=== PATIENT | male | born 1995 | race African-American/Black ===

== ENCOUNTER 2023-07-08 11:35 | Emergency (ER) | payer MEDICAID ==
[~2023-07-08] VITALS: Ht 180.3 cm; Wt 77.3 kg
[2023-07-08 12:44] VITALS: TEMP 97.9
[2023-07-08] MEDS ORDERED: SERT-158 PO (12:47)
[2023-07-08] MEDS ORDERED: BUPR-344 PO (12:47)
[2023-07-08] MEDS ORDERED: IBUP-1492 PO (14:17)
[2023-07-08] MEDS ORDERED: BACL10TA PO (14:17)
[2023-07-08] MEDS ORDERED: LIDO700A15 TP (14:18)
[2023-07-08] MEDS: LIDOCAINE 5% TRANSDERMAL PATCH TD ONE (14:29)
[2023-07-08] MEDS: KETOROLAC TROMETHAMINE 30 MG/ML VIAL IM ONE (14:29)
[2023-07-08 15:07] VITALS: BP 132/72; PULSE 72; RESP 17
== END 2023-07-08 15:08 | disposition home or self-care (01) ==
LOC: EMS 11:35
DX: M54.6 Pain in thoracic spine (principal); M54.2 Cervicalgia; F41.9 Anxiety disorder, unspecified; F32.A Depression, unspecified
CPT/HCPCS: 99283; 96372; J1885

== ENCOUNTER 2023-09-04 17:32 | Emergency (ER) | payer MEDICAID ==
[~2023-09-04] VITALS: Ht 180.3 cm; Wt 76.4 kg
[~2023-09-04 17:32] MED LIST: BACL10TA PO; BUPR-344 PO; IBUP-1492 PO; LIDO700A15 TP; SERT-158 PO
[2023-09-04 17:44] VITALS: TEMP 97.5
[2023-09-04] MEDS ORDERED: LUMA42CA PO (20:57)
[2023-09-04] MEDS ORDERED: SERT-162 PO (20:57)
[2023-09-04] MEDS ORDERED: PRAZ1 PO (20:57)
[2023-09-04] MEDS ORDERED: BUPR-344 PO (20:57)
[2023-09-04] MEDS: PRAZOSIN HCL 1 MG CAPSULE PO ONE (21:13)
[2023-09-04] MEDS: SERTRALINE HCL 100 MG TABLET PO ONE (21:13)
[2023-09-04 21:16] VITALS: BP 105/74; PULSE 79; RESP 20
== END 2023-09-04 21:20 | disposition home or self-care (01) ==
LOC: EMS 17:36
DX: F20.9 Schizophrenia, unspecified (principal); F41.9 Anxiety disorder, unspecified; F32.A Depression, unspecified; Z76.0 Encounter for issue of repeat prescription
CPT/HCPCS: 99283

== ENCOUNTER 2024-03-28 14:59 | Emergency (ER) | payer MEDICAID ==
[~2024-03-28] VITALS: Ht 180.3 cm; Wt 77.7 kg
[~2024-03-28 14:59] MED LIST changes: +LUMA42CA PO; +PRAZ1 PO; +SERT-162 PO
[2024-03-28 15:04] VITALS: TEMP 98.6
[2024-03-28 15:45] VITALS: BP 132/78; PULSE 80; RESP 20; O2SAT 100
[2024-03-28] MEDS ORDERED: BUPR-49 PO ×2 (16:29)
[2024-03-28] MEDS ORDERED: RISP1TAB48 PO ×2 (16:29)
== END 2024-03-28 16:55 | disposition home or self-care (01) ==
LOC: EMS 14:59
DX: F32.A Depression, unspecified (principal); F41.9 Anxiety disorder, unspecified; F43.10 Post-traumatic stress disorder, unspecified; I10 Essential (primary) hypertension; Z76.0 Encounter for issue of repeat prescription; Z79.899 Other long term (current) drug therapy
CPT/HCPCS: 99281; Z7502

== ENCOUNTER 2024-04-10 17:11 | Emergency (ER) | payer MEDICAID ==
[~2024-04-10] VITALS: Ht 180.3 cm; Wt 84.0 kg
[~2024-04-10 17:11] MED LIST changes: +BUPR-49 PO; +RISP1TAB48 PO
[2024-04-10 17:24] VITALS: BP 110/45; PULSE 74; RESP 16; TEMP 98.3; O2SAT 98
[2024-04-10] MEDS ORDERED: BUPR-49 PO (23:02)
[2024-04-10] MEDS ORDERED: RISP-31 PO (23:02)
== END 2024-04-10 23:24 | disposition home or self-care (01) ==
LOC: EMS 17:11
DX: F32.A Depression, unspecified (principal); Z76.0 Encounter for issue of repeat prescription; F41.9 Anxiety disorder, unspecified; Z79.899 Other long term (current) drug therapy
CPT/HCPCS: 99281; 99283